=== PATIENT | female | born 1940 | race Caucasian/White ===

== ENCOUNTER 2018-09-19 06:49 | Day surgery (SDC) | payer MEDICARE, OTHER, SELFPAY ==
[2018-09-19 07:38] VITALS: BP 140/85; PULSE 80; RESP 16; TEMP 37; O2SAT 99
[2018-09-19] MEDS: CATARACT EYE COMPOUND (10 DROPS/SYRINGE) 3 DROPS EYE-OP (07:46)
[2018-09-19] MEDS: PROPARACAINE 0.5% OPHTH SOL 2 DROPS EYE-OP (07:46)
--- NOTE | 2018-09-19 08:48 | P.OP_ITS ---
Operative Date/Time/Diagnoses Pre-op diagnosis: Nuclear Cataract Left eye Post-op diagnosis: same Procedure & Clinicians Surgeon: Jaylen Stallings Anesthesia Type: MAC +/- and Sedation Operative Notes Procedure in detail: Patient brought to the operating suite. Tetracaine drops placed in the left eye. Patient was prepped and draped in sterile manner. Wire lid speculum was placed in the eye. Betadine drops were placed on the eye. This was irrigated. Lidocaine jelly was placed on the eye. A paracentesis port was created with a side-port blade. 0.1 mL 1% preservative free lidocaine was injected into the anterior chamber. The anterior chamber was deepened with viscoelastic. 2.6 mm keratome was used to create a temporal clear corneal incision. Cystotome and Utrata forceps were used to create continuous tear capsulorrhexis. Balanced salt solution was used to hydro dissect the nucleus. The phacoemulsification handpiece was inserted and the nucleus was removed using the stop and chop technique. The irrigation aspiration handpiece was inserted and the remaining cortex was removed. Anterior chamber was deepened with viscoelastic. An Ortiz ZCB00 intraocular lens with a power of 24.0 was injected into the capsular bag. Irrigation aspiration handpiece was inserted and the remaining viscoelastic was removed. Incision was hydrated with balanced salt solution and found to be leak free with pressure with Weck- Makenzie sponges. 0.1 mL Vigamox injected anterior chamber. 0.3 mL Kenalog 10 mg was injected subconjunctivally. Lid speculum was removed. The patient left the operating room in excellent condition. Complications: none Condition: stable Disposition: same day surgery
--- NOTE | 2018-09-19 08:48 | P.OP.PRE_ITS ---
Pre-operative Note Interval Note Changes: No
--- NOTE | 2018-09-19 08:48 | PM.PREOP ---
Pre-operative Note Interval Note Changes: No
--- NOTE | 2018-09-19 08:57 | SUR.OPER ---
Supine on eye stretcher, head on extension cradle secured with tape. Arms tucked at sides with blanket. Pillow under knees.
[2018-09-19] MEDS: MOXIFLOXACIN OPHTH DROPS 3 ML BOTTLE 2 DROPS INJ (08:59)
[2018-09-19] MEDS: LIDOCAINE JELLY 2% 5 ML 1 APPLIC TOP (08:59)
[2018-09-19] MEDS: CHONDROIDTIN/SOD HYALURONATE 1.05 ML SYRINGE INTRAOCULA ×2 (08:59→09:01)
[2018-09-19] MEDS: PHENYLEPHRINE/LIDOCAINE VIAL (OR) 0.2 ML EYE-OP (09:00)
[2018-09-19] MEDS: TETRACAINE 0.5% OPHTH DROPS 15 ML 2 DROPS EYE-LEFT (09:01)
[2018-09-19] MEDS: TRIAMCINOLONE 50 MG/5 ML VIAL INJ (09:01)
[2018-09-19] MEDS: BALANCED SALT IRRIG SOLN NO.2 500 ML, EPINEPHrine 1 MG IRR (09:02)
[2018-09-19 09:15] VITALS: BP 124/82; PULSE 78; RESP 15; TEMP 36.4; O2SAT 96
== END 2018-09-19 09:23 ==
LOC: OR 06:52
PROVIDERS: Family Provider Internal Medicine; PCP Internal Medicine; Visit Provider Ophthalmology
DX: H25.12 Age-related nuclear cataract, left eye (principal); I10 Essential (primary) hypertension
CPT/HCPCS: J0171; J2250; J3010; J3301

== ENCOUNTER 2019-11-09 08:57 | Emergency (ER) | payer MEDICARE, OTHER, SELFPAY ==
[2019-11-09 09:00] VITALS: BP 140/73; PULSE 81; RESP 15; TEMP 36.2; O2SAT 100
--- NOTE | 2019-11-09 09:10 | DI.RAD.S_ITS ---
PROCEDURE: XR CHEST 1V INDICATIONS: chest pain TECHNIQUE: One view of the chest was acquired. COMPARISON: [facility], , CHEST 1 VIEW, 01/02/2018, 2:10. FINDINGS: Surgical changes and devices: Median sternotomy wires and surgical clips are again seen. Lungs and pleura: Lungs are clear. No pleural effusions or pneumothorax. Mediastinum: Mediastinal contours appear normal. Heart size is enlarged. Bones and chest wall: No suspicious bony lesions. Overlying soft tissues appear unremarkable. IMPRESSION: No acute cardiopulmonary pathology. Dictated by: Nicanor Braragan M.D. on 11/09/2019 at 9:30 Approved by: Nicanor Barragan M.D. on 11/09/2019 at 9:31
[2019-11-09 09:48] LABS: Add Manual Diff / Slide Review NO; Basophils Absolute Auto 100 /uL (0-100); Basophils Percent Auto 0.9 % (0-2); Eosinophils Absolute Auto 100 /uL (0-450); Eosinophils Percent Auto 1.7 % (2-4); Hematocrit 38.3 % (36-46); Hemoglobin 12.6 g/dL (12.0-16.0); INR 1.4 (0.9-1.3); Lymphocytes Absolute Auto 1800 /uL (1100-4500); Lymphocytes Percent Auto 23.9 % (25-40); Mean Corpuscular Hemoglobin 25.7 PG (26-34); Mean Corpuscular Volume 77.9 fL (80-100); Monocytes Absolute Auto 400 /uL (0-900); Monocytes Percent Auto 5.6 % (3-14); Neutrophils Absolute Auto 5200 /uL (1500-7000); Neutrophils Percent Auto 67.9 % (50-75); Platelet Count 343 X10^3/uL (150-400); Prothrombin Time 16.2 SECONDS (10.1-12.7); Red Blood Cell Count 4.92 X10^6/uL (4.0-5.2); Red Cell Distribution Width 16.9 % (11.6-14.8); White Blood Cell Count 7.7 X10^3/uL (4.5-11.0)
[2019-11-09 09:51] LABS: PTT Partial Thromboplastin Tim 40 SECONDS (26.4-36.2)
[2019-11-09 09:53] LABS: Alanine Aminotransferase 15 IU/L (<35); Albumin 4.4 g/dL (3.5-5.0); Albumin Globulin Ratio 1.4 (1.0-2.8); Alkaline Phosphatase 79 U/L (38-126); Aspartate Aminotransferase 27 IU/L (14-36); BUN Creatinine Ratio 15.7 (6-22); Bilirubin Total 1.3 mg/dL (0.2-1.3); Blood Urea Nitrogen 11 mg/dL (7-17); Carbon Dioxide 30 mmol/L (22-32); Chloride 103 mmol/L (98-107); Creatine Kinase 57 U/L (30-135); Estimated Glomerular Filt Rate > 60.0 mL/min (>60); Globulin 3.2 g/dL (1.7-4.1); Glucose 121 mg/dL (80-110); HEMOLYSIS < 15 (0-50); Lipase 58 U/L (23-300); Magnesium 1.9 mg/dL (1.6-2.3); Potassium 3.9 mmol/L (3.4-5.1); Sodium 142 mmol/L (137-145); Total Protein 7.6 g/dL (6.3-8.2)
--- NOTE | 2019-11-09 09:56 | ED_ITS ---
HPI - SOB/Dyspnea General Chief Complaint: Shortness of Breath/Dyspnea Stated Complaint: shortness of breath,pain in back Time Seen by Provider: 11/09/19 09:54 Source: patient Mode of arrival: Family Vehicle Limitations: no limitations History of Present Illness HPI Narrative: This is a 79-year-old female who comes to the emergency department with complaint of back pain. Patient states that she episode of choking or she states something went down the wrong pipe and then she had pretty extensive coughing episode. She states then she developed pain in her thoracic back region in just 1 location. She states if she takes a deep inspiratory breath it causes pain. Very localize she states movement often bothers as well. It's been going on for about 2 weeks so she finally went to see her primary care. Patient has not had fevers, she states she is not short of breath. She states she hasn't had any lightheadedness or passing out. She does not have any anterior chest pain or pressure. No nausea, no vomiting. Patient states she has a history of [place], CABG as well as cardiac stents. She had a total hip in May, she states after her CABG she has had intermittent swelling in her left lower extremity which is frequent and worse when in a lowered position. She states she did take the train to [place] for the holidays which was several weeks ago. Patient states her leg was typically swollen after that has improved. She states she always has some pain in that lower extremity. She denies any redness or warmth in states that the swelling resolves with elevation and time. Patient is on an aspirin daily, no other anticoagulation. Related Data Home Medications Medication Instructions Recorded Confirmed CALCIUM CARBONATE/VITAMIN D3 0 PO * DOSE/FREQUENCY #0 05/21/06 (Oyster Shell Calcium-Vit D Tab) VITAMIN D (Vitamin D2) 50,000 units PO SEE INSTRUCTIONS #0 01/06/13 ascorbic acid (vitamin C) 500 mg PO BID #0 01/06/13 11/09/19 aspirin 81 mg PO DAILY #0 01/06/13 11/09/19 atorvastatin [Lipitor] 40 mg PO DAILY #0 11/01/16 11/09/19 diclofenac epolamine [Flector] 1 ea TD #0 11/01/16 tamsulosin [Flomax] 0.4 mg PO QDAY #0 11/01/16 alendronate 70 mg PO QWEEK 11/09/19 11/09/19 amlodipine 2.5 mg PO BID 11/09/19 11/09/19 apixaban [Eliquis] 5 mg PO BID 11/09/19 11/09/19 ketoconazole 1 applic TOPICAL DIRECTED 11/09/19 11/09/19 losartan 50 mg PO BID 11/09/19 metoprolol succinate [Toprol XL] 50 mg PO BID 11/09/19 pantoprazole 40 mg PO DAILY 11/09/19 11/09/19 Previous Rx's Medication Instructions Recorded cyclobenzaprine 5 mg PO TID PRN #40 01/06/13 Allergies Allergy/AdvReac Type Severity Reaction Status Date / Time Sulfa (Sulfonamide Allergy Unknown Verified 09/19/18 07:45 Antibiotics) [SULFA (SULFONAMIDE ANTIBIOTICS)] Review of Systems Review of Systems ROS Unobtainable: All systems reviewed & are unremarkable except as noted in HPI and below Exam Narrative Exam Narrative: GENERAL: Alert and oriented x three, well-nourished, well- appearing female in mild distress. HEENT: Head normocephalic, atraumatic, EOMI, pupils reactive, face symmetric, moist mucous membranes NECK: Supple, full range of motion CARDIOVASCULAR: Regular rate and rhythm without murmurs, rubs or gallops. RESPIRATORY: Breath sounds equal bilaterally, no wheezes rales or rhonchi. ABDOMEN: Soft, nontender. Normoactive bowel sounds all 4 quadrants. No guarding or rebound, rigidity, no mass : No CVA tenderness BACK: No cervical, thoracic or lumbar vertebral point tenderness. Back pain is not reproducible. Patient states that the tenderness is typically in the upper thoracic area and when I palpate the T he for 5 region on the right ribs about 4 cm from midline this is the right location but she states it does not reproduce the pain. Patient has normal range of motion. Patient's gait is normal. EXTREMITIES: Normal range of motion, no clubbing or edema noted. Patient has 2+ pulse. Normal sensation. No pallor, cyanosis or erythema. Neurovascularly intact NEUROLOGICAL: Cranial nerves II through XII grossly intact. Moving all ext remities SKIN: Warm, dry, no petechiae, no rashes or lesions. Initial Vital Signs Initial Vital Signs: Vital Signs Temperature 97.2 F L 11/09/19 09:00 Pulse Rate 81 11/09/19 09:00 Respiratory Rate 15 11/09/19 09:00 Blood Pressure 140/73 11/09/19 09:00 Pulse Oximetry 100 11/09/19 09:00 Course Orders Ordered: ED Orders 11/09/19 10:09 periph venous low extrem lt Stat Vital Signs Vital signs: Vital Signs - 8 hr 11/09/19 11:00 11/09/19 11:36 Pulse Rate 70 71 Respiratory Rate 20 18 Blood Pressure 112/70 Blood Pressure [Left Arm] 111/66 Pulse Oximetry 97 100 MDM - SOB/Dyspnea Lab Data Attestation: I reviewed the patient's lab results. Result diagrams: 11/09/19 09:35 11/09/19 09:35 Labs: Lab Results 11/09/19 11/09/19 11/09/19 Range/Units 09:35 09:35 09:35 WBC 7.7 (4.5-11.0) X10^3/uL RBC 4.92 (4.0-5.2) X10^6/uL Hgb 12.6 (12.0-16.0) g/dL Hct 38.3 (36-46) % MCV 77.9 L (80-100) fL MCH 25.7 L (26-34) PG MCHC 33.0 (30-36) % RDW 16.9 H (11.6-14.8) % Plt Count 343 (150-400) X10^3/uL Neut % (Auto) 67.9 (50-75) % Lymph % (Auto) 23.9 L (25-40) % Pierce % (Auto) 5.6 (3-14) % Eos % (Auto) 1.7 L (2-4) % Baso % (Auto) 0.9 (0-2) % Neut # (Auto) 5200 (0755-6182) /uL Lymph # (Auto) 1800 (7017-3600) /uL Pierce # (Auto) 400 (0-900) /uL Eos # (Auto) 100 (0-450) /uL Baso # (Auto) 100 (0-100) /uL PT 16.2 H (10.1-12.7) SECONDS INR 1.4 H (0.9-1.3) APTT 40 H (26.4-36.2) SECONDS D-Dimer (<230) ng/mL Sodium 142 (137-145) mmol/L Potassium 3.9 (3.4-5.1) mmol/L Chloride 103 (98-107) mmol/L Carbon Dioxide 30 (22-32) mmol/L BUN 11 (7-17) mg/dL Creatinine 0.70 (0.52-1.04) mg/dL Estimated GFR > 60.0 (>60) mL/min BUN/Creatinine Ratio 15.7 (6-22) Glucose 121 H (80-110) mg/dL Calcium 10.0 (8.4-10.2) mg/dL Magnesium 1.9 (1.6-2.3) mg/dL Total Bilirubin 1.3 (0.2-1.3) mg/dL AST 27 (14-36) IU/L ALT 15 (<35) IU/L Alkaline Phosphatase 79 (38-126) U/L Total Creatine Kinase 57 (30-135) U/L CK-MB (CK-2) TNP CK-MB (CK-2) Rel Index TNP Troponin I < 0.012 (0.01-0.034) ng/mL B-Natriuretic Peptide (<100) Total Protein 7.6 (6.3-8.2) g/dL Albumin 4.4 (3.5-5.0) g/dL Globulin 3.2 (1.7-4.1) g/dL Albumin/Globulin Ratio 1.4 (1.0-2.8) Lipase 58 (23-300) U/L 11/09/19 11/09/19 Range/Units 09:35 09:35 WBC (4.5-11.0) X10^3/uL RBC (4.0-5.2) X10^6/uL Hgb (12.0-16.0) g/dL Hct (36-46) % MCV (80-100) fL MCH (26-34) PG MCHC (30-36) % RDW (11.6-14.8) % Plt Count (150-400) X10^3/uL Neut % (Auto) (50-75) % Lymph % (Auto) (25-40) % Pierce % (Auto) (3-14) % Eos % (Auto) (2-4) % Baso % (Auto) (0-2) % Neut # (Auto) (5419-5361) /uL Lymph # (Auto) (5881-2002) /uL Pierce # (Auto) (0-900) /uL Eos # (Auto) (0-450) /uL Baso # (Auto) (0-100) /uL PT (10.1-12.7) SECONDS INR (0.9-1.3) APTT (26.4-36.2) SECONDS D-Dimer 262 H (<230) ng/mL Sodium (137-145) mmol/L Potassium (3.4-5.1) mmol/L Chloride (98-107) mmol/L Carbon Dioxide (22-32) mmol/L BUN (7-17) mg/dL Creatinine (0.52-1.04) mg/dL Estimated GFR (>60) mL/min BUN/Creatinine Ratio (6-22) Glucose (80-110) mg/dL Calcium (8.4-10.2) mg/dL Magnesium (1.6-2.3) mg/dL Total Bilirubin (0.2-1.3) mg/dL AST (14-36) IU/L ALT (<35) IU/L Alkaline Phosphatase (38-126) U/L Total Creatine Kinase (30-135) U/L CK-MB (CK-2) CK-MB (CK-2) Rel Index Troponin I (0.01-0.034) ng/mL B-Natriuretic Peptide < 100 (<100) Total Protein (6.3-8.2) g/dL Albumin (3.5-5.0) g/dL Globulin (1.7-4.1) g/dL Albumin/Globulin Ratio (1.0-2.8) Lipase (23-300) U/L Imaging Data Chest x-ray: Radiologist's Impression: [address] [address] XRay Report Signed Patient: Payal Victor [facility]#: [id number] : 1940Acct:[id number] Age/Sex: 79 / FDate of Service: 11/09/19 Loc: ED Accession Number: [id number] Procedure: XR chest 1V Ordering Provider: Maya Hernandez D.O. PROCEDURE: XR CHEST 1V INDICATIONS: chest pain TECHNIQUE: One view of the chest was acquired. COMPARISON: [facility], , CHEST 1 VIEW, 01/02/2018, 2:10. FINDINGS: Surgical changes and devices: Median sternotomy wires and surgical clips are again seen. Lungs and pleura: Lungs are clear. No pleural effusions or pneumothorax. Mediastinum: Mediastinal contours appear normal. Heart size is enlarged. Bones and chest wall: No suspicious bony lesions. Overlying soft tissues appear unremarkable. IMPRESSION: No acute cardiopulmonary pathology. Dictated by: Nicanor Barragan M.D. on 11/09/2019 at 9:30 Approved by: Nicanor Barragan M.D. on 11/09/2019 at 9:31 US - DVT: Radiologist's Impression: [place] [id number] Ultrasound Report Signed Patient: Payal Victor [facility]#: [id number] : 1940Acct:[id number] Age/Sex: 79 / FDate of Service: 11/09/19 Loc: ED Accession Number: [id number] Procedure: US periph venous low extrem lt Ordering Provider: Maya Hernandez D.O. PROCEDURE: US PERIPH VENOUS LOW EXTREM LT INDICATIONS: EDEMA TECHNIQUE: Real-time imaging, as well as color and pulse Doppler interrogation, were performed of the lower extremity deep veins from the inguinal ligament to the popliteal fossa. COMPARISON: None. FINDINGS: The common femoral, femoral and popliteal veins are normally compressible, and free of intraluminal thrombus. Color and pulse Doppler demonstrate normal phasic intraluminal flow. There is normal augmentation response to distal compression maneuver. IMPRESSION: Negative duplex left lower extremity ultrasound for DVT. Dictated by: Solo Ambrosio M.D. on 11/09/2019 at 11:01 Approved by: Solo Ambrosio M.D. on 11/09/2019 at 11:02 ECG Data Attestation: I personally reviewed and interpreted this ECG as follows: Prior ECG tracings: available for review Interpretation: Sinus rhythm occasional PVC. Rate of 79 AR 155 QRS 88 QTC of 442. No ST elevation or depression is appreciated. MDM Narrative Medical decision making narrative: Discussed with patient by her history it sounds almost like a torn or pulled muscle. We discussed angiography but patient is reluctant. We discussed doing D-dimer as well as DVT study in the left lower extremity which is the 1 that tends to swell. Patient prefers this route we did discuss that there's potential that D-dimer can be elevated or that there is potentially a false negative and we could miss PE. Discussed with patient her age calculated cut-off for D-dimer is 395. Her D- dimer today is in the 260 range. DVT is negative. Patient's symptomatology seems more consistent with a torn or pulled muscle in her back. Chest x-ray, EKG are negative with normal labs other than elevated coags patient is already on Eliquis. Glucose is 121 but troponin, BNP, CMP do not show any major abnormalities. No signs of infection with her white count. Or clinically. Discussed with patient she is comfortable returning home. She defers any additional pain medicaitions and has a muscle relaxer at home available to her. Discussed s/s, reasons to return emergently. Discharge Plan Departure Patient Disposition: Home Clinical Impression: Back pain, thoracic Qualifiers: Back pain laterality: right Discharge Date/Time: 11/09/19 11:36 Instructions: DI for Thoracic Back Pain Activity Restrictions/Additional Instructions: Follow up with your physician if your symptoms do not resolve over the next 1-2 weeks. You may take tylenol up to 1000mg every 8 hours as needed for pain. Return to the ER for fevers greater 100.4 F, rapidly worsening pain, new shortness of breath, new chest pain or pressure, lightheadedness, passing out, new nausea vomiting, diaphoresis, worsening swelling, redness or other new or concerning symptoms. Prescriptions: No Action CALCIUM CARBONATE/VITAMIN D3 (Oyster Shell Calcium-Vit D Tab) 0 PO * DOSE/FREQUENCY Qty: 0 RF: 0 aspirin 81 MG tablet,delayed release (DR/EC) 81 mg PO DAILY Qty: 0 RF: 0 VITAMIN D (Vitamin D2) 50,000 units PO SEE INSTRUCTIONS Qty: 0 RF: 0 ascorbic acid (vitamin C) 500 mg Tablet 500 mg PO BID Qty: 0 RF: 0 cyclobenzaprine 5 MG tablet 5 mg PO TID PRNQty: 40 RF: 0 atorvastatin [Lipitor] 40 MG tablet 40 mg PO DAILY Qty: 0 RF: 0 tamsulosin [Flomax] 0.4 MG capsule,extended release 24hr 0.4 mg PO QDAY Qty: 0 RF: 0 diclofenac epolamine [Flector] 1 EACH patch 12 hour 1 ea TD Qty: 0 RF: 0 losartan 50 mg tablet 50 mg PO BID RF: 0 ketoconazole 2 % shampoo 1 applic TOPICAL DIRECTED RF: 0 alendronate 70 mg tablet 70 mg PO QWEEK RF: 0 amlodipine 2.5 mg tablet 2.5 mg PO BID RF: 0 Eliquis 5 mg tablet 5 mg PO BID RF: 0 metoprolol succinate [Toprol XL] 50 mg tablet extended release 24 hr 50 mg PO BID RF: 0 pantoprazole 40 mg tablet,delayed release (DR/EC) 40 mg PO DAILY RF: 0 Referrals: Gregory Mcghee MD [Primary Care Provider] -
[2019-11-09 10:00] VITALS: BP 115/95; PULSE 74; RESP 18; O2SAT 97
[2019-11-09 10:04] LABS: Troponin I < 0.012 ng/mL (0.01-0.034)
[2019-11-09 10:08] LABS: B Type Natriuretic Peptide < 100 (<100)
--- NOTE | 2019-11-09 10:09 | DI.US.S_ITS ---
PROCEDURE: US PERIPH VENOUS LOW EXTREM LT INDICATIONS: EDEMA TECHNIQUE: Real-time imaging, as well as color and pulse Doppler interrogation, were performed of the lower extremity deep veins from the inguinal ligament to the popliteal fossa. COMPARISON: None. FINDINGS: The common femoral, femoral and popliteal veins are normally compressible, and free of intraluminal thrombus. Color and pulse Doppler demonstrate normal phasic intraluminal flow. There is normal augmentation response to distal compression maneuver. IMPRESSION: Negative duplex left lower extremity ultrasound for DVT. Dictated by: Solo Ambrosio M.D. on 11/09/2019 at 11:01 Approved by: Solo Ambrosio M.D. on 11/09/2019 at 11:02
[2019-11-09 10:54] LABS: D Dimer 262 ng/mL (<230)
[2019-11-09 11:00] VITALS: BP 111/66; PULSE 70; RESP 20; O2SAT 97
[2019-11-09 11:36] VITALS: BP 112/70; PULSE 71; RESP 18; O2SAT 100
== END 2019-11-09 11:36 | disposition home or self-care (01) ==
PROVIDERS: Emergency Provider Emergency Medicine; Family Provider Internal Medicine; PCP Internal Medicine
DX: M54.6 Pain in thoracic spine (principal); R60.0 Localized edema; I49.3 Ventricular premature depolarization; R07.9 Chest pain, unspecified
CPT/HCPCS: 36415; 71045; 80053; 82550; 83690; 83735; 83880; 84484; 85025; 85379; 85610; 85730; 93005; 93971; 99284; 99285

== ENCOUNTER → 2020-09-23 11:05 | Outpatient (CLI) | payer MEDICARE, OTHER, SELFPAY ==
--- NOTE | 2020-09-23 | DI.US.S_ITS ---
PROCEDURE: US SOFT TISSUE HEAD AND NECK INDICATIONS: LOCALIZED SWELLING, MASS IN NECK TECHNIQUE: Real-time scanning was performed of the neck region of interest, with image documentation. COMPARISON: None. FINDINGS: The area of clinical concern is the left where a lymph node superior to the submandibular gland is present measuring 0.7 x 1.1 x 1.9 cm. Letitia cortical thickening is not present. IMPRESSION: Single mildly prominent lymph node without pathologic enlargement or cortical thickening appears present at the area of current clinical concern. Continued clinical follow-up is recommended and if concerns persist or increase contrast-enhanced neck CT scanning would be recommended. Dictated by: Andi Wolf M.D. on 09/23/2020 at 13:19 Approved by: Andi Wolf M.D. on 09/23/2020 at 13:20
== END ==
PROVIDERS: Family Provider Internal Medicine; PCP Internal Medicine; Referring Provider Internal Medicine; Visit Provider Internal Medicine
DX: R22.1 Localized swelling, mass and lump, neck (principal)
CPT/HCPCS: 76536

== ENCOUNTER → 2020-11-29 15:02 | Outpatient (CLI) | payer MEDICARE, OTHER, SELFPAY ==
--- NOTE | 2020-11-29 | DI.MG.S_ITS ---
BILATERAL DIGITAL SCREENING MAMMOGRAM 3D/2D WITH CAD: 11/29/2020 CLINICAL: Routine screening. Baseline by default. Family history of breast cancer. No prior exams were available for comparison. The tissue of both breasts is heterogeneously dense. This may lower the sensitivity of mammography. Current study was also evaluated with a Computer Aided Detection (CAD) system. There are benign calcifications in both breasts. No significant masses, calcifications, or other findings are seen in either breast. IMPRESSION: BENIGN There is no mammographic evidence of malignancy. A 1 year screening mammogram is recommended. This exam was interpreted at Station ID: [id number]. NOTE: For mammograms, a report in lay terms will be sent to the patient. Approximately 15% of breast malignancies will not be visualized mammographically. In the management of a palpable breast mass, a negative mammogram must not discourage biopsy of a clinically suspicious lesion. Electronically Signed By: Jim hicks/nina:12/01/2020 08:09:46 letter sent: Normal Exam ACR BI-RADS Category 2: Benign Finding(s) 3342F
== END ==
PROVIDERS: Family Provider Internal Medicine; PCP Internal Medicine; Referring Provider Physician Assistant Medical; Visit Provider Physician Assistant Medical
DX: Z12.31 Encounter for screening mammogram for malignant neoplasm of breast (principal); Z80.3 Family history of malignant neoplasm of breast
CPT/HCPCS: 77063; 77067

== ENCOUNTER → 2022-02-10 14:14 | Outpatient (CLI) | payer MEDICARE, OTHER, SELFPAY ==
--- NOTE | 2022-02-10 | DI.RAD.S_ITS ---
PROCEDURE: XR THORACIC SPINE 2V INDICATIONS: BACK PAIN TECHNIQUE: 3 views of the thoracic spine were acquired. COMPARISON: [facility], , THORACIC SPINE 3 VIEWS, 05/23/2012, 10:48. FINDINGS: Bones: No acute fractures or dislocations. No acute compression fracture seen. Stable appearance of chronic anterior compression deformities of the thoracolumbar junction. Interval progression of moderate multilevel thoracic spondylosis with degenerative endplate changes and prominent endplate osteophytes. No suspicious bony lesions. 12 pairs of ribs are noted, and appear intact where visualized. Soft tissues: No paravertebral stripe thickening. Median sternotomy wires are intact. Postoperative changes from prior CABG. IMPRESSION: Thoracic spine without acute osseous abnormalities. Interval progression of now moderate multilevel thoracic spondylosis. Dictated by: Js Lang M.D. on 02/10/2022 at 15:26 Approved by: Js Lang M.D. on 02/10/2022 at 15:28
--- NOTE | 2022-02-10 14:18 | DI.RAD.S_ITS ---
PROCEDURE: XR LUMBAR SPINE 2-3V INDICATIONS: DORSALGIA TECHNIQUE: 3 views of the lumbar spine were acquired. COMPARISON: [facility], , L-SPINE 6V INCLUDING BENDING, 09/04/2012, 11:52. FINDINGS: Bones: 5 [id number] vertebrae are present. There is mild levocurvature of the upper lumbar spine centered at L1-2. No acute vertebral body compression fractures. No suspicious bony lesions. Interval progression of moderate-severe multilevel lumbar spondylosis with increased degenerative endplate changes and endplate osteophyte formation at T11-T12 through L2-3. Progression of severe mid and lower lumbar facet arthropathy. Minimal grade 1 anterolisthesis of L4 on L5 not significantly changed. Status post left hip arthroplasty. Soft tissues: Overlying bowel gas pattern is normal. No suspicious soft tissue calcifications. Atherosclerotic calcifications of the abdominal aorta. IMPRESSION: Lumbar spine without acute osseous abnormalities. Interval progression of now moderate-severe multilevel lumbar spondylosis. Dictated by: Js Lang M.D. on 02/10/2022 at 15:24 Approved by: Js Lang M.D. on 02/10/2022 at 15:26
--- NOTE | 2022-02-10 14:18 | DI.RAD.S_ITS ---
PROCEDURE: XR CHEST 2V INDICATIONS: DORSALGIA TECHNIQUE: 2 views of the chest were acquired. COMPARISON: [facility], CR, XR THORACIC SPINE 2V, 02/10/2022, 14:21. [facility], CR, XR CHEST 1V, 11/09/2019, 9:17. FINDINGS: Surgical changes and devices: Postsurgical changes from median sternotomy and CABG. Lungs and pleura: Lungs are clear. No pleural effusions or pneumothorax. Mediastinum: Mediastinal contours are normal. Heart size is normal. Bones and chest wall: No suspicious bony abnormalities. Soft tissues appear unremarkable. Generalized osteopenia. Multilevel spondylosis. IMPRESSION: No acute cardiopulmonary abnormality. Dictated by: Hardy Leal M.D. on 02/10/2022 at 15:41 Approved by: Hardy Leal M.D. on 02/10/2022 at 15:43
== END ==
PROVIDERS: Family Provider Internal Medicine; PCP Internal Medicine; Referring Provider Student in an Organized Health Care Education/Training Program; Visit Provider Student in an Organized Health Care Education/Training Program
DX: M47.816 Spondylosis without myelopathy or radiculopathy, lumbar region (principal); M47.814 Spondylosis without myelopathy or radiculopathy, thoracic region; M54.9 Dorsalgia, unspecified; I70.0 Atherosclerosis of aorta; Z95.1 Presence of aortocoronary bypass graft; Z96.642 Presence of left artificial hip joint
CPT/HCPCS: 71046; 72070; 72100

== ENCOUNTER → 2022-04-14 09:50 | Outpatient (CLI) | payer MEDICARE, OTHER, SELFPAY ==
--- NOTE | 2022-04-14 09:57 | DI.CT.S_ITS ---
PROCEDURE: CT ABDOMEN PELVIS W CON INDICATIONS: Abdominal distension (gaseous) TECHNIQUE: After the administration of oral and IV contrast, axial sections were acquired from the lung bases to the pubic symphysis. Coronal and sagittal reformats were performed. For radiation dose reduction, the following was used: automated exposure control, adjustment of mA and/or kV according to patient size. COMPARISON: None. FINDINGS: Image quality: There is artifact associated with the metallic hardware. Lung bases: Unremarkable. Sternotomy wires are partially seen. Heart: No significant findings. ABDOMEN: Liver: Unremarkable. Gallbladder: A gallstone is seen within the gallbladder lumen without additional CT abnormalities of the gallbladder. Biliary ducts: Unremarkable. Pancreas: Unremarkable. Spleen: Unremarkable. Adrenal Glands: Unremarkable. Kidneys and Ureters: Unremarkable. Stomach and Bowel: Stomach, small bowel loops, and colon are unremarkable. Colonic diverticulosis is seen, without findings of active diverticulitis. Peritoneum: No abnormal intraperitoneal fluid. No free air. Ventral Wall: A trace periumbilical hernia is seen, containing fat. Abdominal Nodes: No retroperitoneal or mesenteric adenopathy by size criteria. Vessels: Aorta and inferior vena cava are normal in size. PELVIS: Pelvic Organs: This patient is status post hysterectomy. No adnexal masses are seen. Bladder: A cystocele is seen, as on series 5, image 43. Pelvic Nodes: No enlarged lymph nodes. Miscellaneous: No inguinal hernias are seen. Bones: Left hip arthroplasty hardware is seen. Mild levoconvex scoliotic curvature is noted. Age-appropriate bony degenerative changes are seen. IMPRESSION: No significant bowel abnormality is seen to explain the patient's presenting symptoms. No ascites. Hysterectomy with cystocele noted. Incidental note is made of: Gallstone Trace fat containing periumbilical hernia Levoconvex scoliotic curvature Diverticulosis, without active diverticulitis Left hip arthroplasty hardware Dictated by: John Alejo M.D. on 04/14/2022 at 14:47 Approved by: John Alejo M.D. on 04/14/2022 at 14:50
[2022-04-14 11:22] LABS: BUN Creatinine Ratio 22.1 (6-22); Blood Urea Nitrogen 17 mg/dL (7-17); Calcium 9.5 mg/dL (8.4-10.2); Carbon Dioxide 30 mmol/L (22-32); Chloride 104 mmol/L (98-107); Estimated Glomerular Filt Rate > 60 mL/min (>60); Glucose 120 mg/dL (80-110); HEMOLYSIS < 15 (0-50); Potassium 3.7 mmol/L (3.4-5.1); Sodium 141 mmol/L (137-145)
== END ==
PROVIDERS: Family Provider Internal Medicine; PCP Internal Medicine; Referring Provider Physician Assistant; Visit Provider Physician Assistant
DX: Z01.812 Encounter for preprocedural laboratory examination (principal); R14.0 Abdominal distension (gaseous); R15.9 Full incontinence of feces; K80.20 Calculus of gallbladder without cholecystitis without obstruction; K57.90 Diverticulosis of intestine, part unspecified, without perforation or abscess without bleeding; M41.9 Scoliosis, unspecified; Z90.710 Acquired absence of both cervix and uterus; Z96.642 Presence of left artificial hip joint
CPT/HCPCS: 36415; 74177; 80048; Q9967

== ENCOUNTER → 2022-06-09 14:15 | Outpatient (CLI) | payer MEDICARE, OTHER, SELFPAY ==
[2022-06-09 15:30] LABS: Add Manual Diff / Slide Review NO; Basophils Absolute Auto 0 /uL (0-100); Basophils Percent Auto 0.6 % (0-2); Eosinophils Absolute Auto 100 /uL (0-450); Eosinophils Percent Auto 2.3 % (2-4); Hemoglobin 12.7 g/dL (12.0-16.0); Lymphocytes Absolute Auto 1900 /uL (1100-4500); Lymphocytes Percent Auto 31.6 % (25-40); Mean Corpuscular HGB Conc 33.3 % (30-36); Monocytes Absolute Auto 400 /uL (0-900); Monocytes Percent Auto 7.5 % (3-14); Neutrophils Absolute Auto 3500 /uL (1500-7000); Platelet Count 280 X10^3/uL (150-400); Red Blood Cell Count 4.53 X10^6/uL (4.0-5.2); Red Cell Distribution Width 14.1 % (11.6-14.8)
[2022-06-09 16:02] LABS: Alanine Aminotransferase 25 IU/L (<35); Albumin Globulin Ratio 1.5 (1.0-2.8); Alkaline Phosphatase 61 U/L (38-126); Aspartate Aminotransferase 36 IU/L (14-36); BUN Creatinine Ratio 25.4 (6-22); Bilirubin Total 1.4 mg/dL (0.2-1.3); Blood Urea Nitrogen 17 mg/dL (7-17); Calcium 8.9 mg/dL (8.4-10.2); Carbon Dioxide 29 mmol/L (22-32); Cholesterol 148 mg/dL (140-199); Estimated Glomerular Filt Rate > 60 mL/min (>60); Globulin 2.7 g/dL (1.7-4.1); Glucose 101 mg/dL (80-110); HDL Cholesterol 56 mg/dL (40-60); HEMOLYSIS < 15 (0-50); LDL Cholesterol Calculated 71 mg/dL (<100); Total Protein 6.7 g/dL (6.3-8.2); Triglycerides 103 mg/dL (35-150)
[2022-06-09 16:08] LABS: Chloride 104 mmol/L (98-107); Potassium 3.6 mmol/L (3.4-5.1); Sodium 142 mmol/L (137-145)
== END ==
PROVIDERS: Family Provider Internal Medicine; PCP Internal Medicine; Referring Provider Internal Medicine Cardiovascular Disease; Visit Provider Internal Medicine Cardiovascular Disease
DX: I25.10 Atherosclerotic heart disease of native coronary artery without angina pectoris (principal); I25.810 Atherosclerosis of coronary artery bypass graft(s) without angina pectoris
CPT/HCPCS: 36415; 80053; 80061; 85025

== ENCOUNTER → 2022-08-27 11:02 | Outpatient (CLI) | payer MEDICARE, OTHER, SELFPAY ==
--- NOTE | 2022-08-27 | DI.RAD.S_ITS ---
PROCEDURE: XR HIP W PEL IF DONE RT 2V INDICATIONS: Age-related osteoporosis, pain in right hip TECHNIQUE: AP pelvis with lateral view(s) of the right hip(s). COMPARISON: None. FINDINGS: Bones: No fractures or dislocations. Pelvic ring appears intact. There is severe right hip joint space narrowing, articular surface sclerosis, early subchondral cystic change, and collar osteophytosis. Left hip arthroplasty is grossly intact. Soft tissues: The visualized bowel gas pattern is normal. No suspicious soft tissue calcifications. IMPRESSION: Severe right hip osteoarthritis. Dictated by: Gladys Whitney M.D. on 08/27/2022 at 15:42 Approved by: Gladys Whitney M.D. on 08/27/2022 at 15:43
== END ==
PROVIDERS: Family Provider Internal Medicine; PCP Internal Medicine; Referring Provider Family Medicine; Visit Provider Family Medicine
DX: Z13.820 Encounter for screening for osteoporosis (principal); M25.551 Pain in right hip; M16.11 Unilateral primary osteoarthritis, right hip; M85.851 Other specified disorders of bone density and structure, right thigh; Z78.0 Asymptomatic menopausal state; M06.9 Rheumatoid arthritis, unspecified
CPT/HCPCS: 73502; 77080

== ENCOUNTER → 2024-11-08 09:53 | Outpatient (CLI) | payer MEDICARE, OTHER, SELFPAY ==
--- NOTE | 2024-11-08 09:59 | DI.RAD.S_ITS ---
PROCEDURE: XR WRIST LT MIN 3V INDICATIONS: Localized swelling, mass and lump, right upper limb TECHNIQUE: 3 views of the wrist were acquired. COMPARISON: None. FINDINGS: Bones: No fractures or dislocations. There is severe degenerative osteoarthritic change at the base of the 1st metacarpal as it articulates against the distal trapezium. 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 No suspicious bony lesions. Soft tissues: No suspicious soft tissue calcifications. A small metallic device lies at the margin of the distal radius perhaps related to some prior surgical intervention IMPRESSION: No acute bony abnormality. 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 Small thin metallic foreign body in the soft tissues near the distal radius at its lateral margin. Dictated by: Andi Wolf M.D. on 11/08/2024 at 15:45 Approved by: Andi Wolf M.D. on 11/08/2024 at 15:47
== END ==
PROVIDERS: Family Provider Internal Medicine; PCP Internal Medicine
DX: M18.12 Unilateral primary osteoarthritis of first carpometacarpal joint, left hand (principal); M79.5 Residual foreign body in soft tissue; M25.531 Pain in right wrist; R22.31 Localized swelling, mass and lump, right upper limb
CPT/HCPCS: 73110

== ENCOUNTER → 2024-11-15 14:59 | Outpatient (CLI) | payer MEDICARE, OTHER, SELFPAY ==
--- NOTE | 2024-11-15 15:02 | DI.RAD.S_ITS ---
PROCEDURE: XR WRIST LT MIN 3V INDICATIONS: Pain in left wrist TECHNIQUE: For views of the wrist were acquired. COMPARISON: [facility], CR, XR WRIST LT MIN 3V, 11/08/2024, 9:57. FINDINGS: Bones: Decreased mineralization. No acute fractures. Severe osteoarthritic changes at the 1st CMC joint. Soft tissues: Mild calcification of the triangular fibrocartilage and at the lunotriquetral articulation. There is a metallic surgical clip in the ventral lateral soft tissues adjacent to the distal radius. No other suspicious soft tissue abnormalities. IMPRESSION: Demineralization and osteoarthritic changes. Surgical clip in the soft tissues adjacent to the distal radius, likely sequelae of prior vein harvest. Dictated by: Blanka Haro M.D. on 11/15/2024 at 21:57 Approved by: Blanka Haro M.D. on 11/15/2024 at 22:00
== END ==
LOC: RAD 15:01
PROVIDERS: Family Provider Internal Medicine; PCP Internal Medicine
DX: M25.532 Pain in left wrist (principal)
CPT/HCPCS: 73110